=== PATIENT | male | born 1950 | race Caucasian/White ===

== ENCOUNTER 2019-06-03 23:59 | Emergency (ER) | payer MEDICAID ==
[~2019-06-03] VITALS: Ht 180.3 cm; Wt 80.0 kg
[~2019-06-03 23:59] MED LIST: ALPR1TAB2 PO; CLIN150C8 PO; ESCI20TA PO; FLUT16SP26 BOTHNARES; INSU100V9 SQ; LISI-600 PO; LORA10TA7 PO; METF-438 PO; MSC15T PO; ONDA4TAB6 PO; OXYC-150 PO; PANT-47 PO; TIZA4CAP PO; TRAZ-219 PO
[2019-06-04 00:39] LABS: BASOPHILS # (AUTO) 0.1 X10'3 (0-0.2); BASOPHILS % (AUTO) 0.8 % (0-1); EOSINOPHILS # (AUTO) 0.1 X10'3 (0-0.9); EOSINOPHILS % (AUTO) 1.2 % (0-6); HEMATOCRIT 47.8 % (42.0-52.0); HEMOGLOBIN 16.5 g/dl (14.0-17.9); LYMPHOCYTES # (AUTO) 1.7 X10'3 (1.1-4.8); LYMPHOCYTES % (AUTO) 13.9 % (21-51); MEAN CORPUSCULAR HGB CONC 34.6 g/dL (33.0-36.5); MEAN CORPUSCULAR VOLUME 86.9 FL (78-98); MONOCYTES # (AUTO) 0.7 X10'3 (0-0.9); MONOCYTES % (AUTO) 5.7 % (2-12); NEUTROPHILS # (AUTO) 9.6 X10'3 (1.8-7.7); NEUTROPHILS % (AUTO) 78.4 % (42-75); PLATELET COUNT 261 X10'3 (140-440); RED CELL DISTRIBUTION WIDTH 13.1 % (11.5-14.5); WHITE BLOOD COUNT 12.3 X10'3 (4.5-11.0)
[2019-06-04 00:57] LABS: ALANINE AMINOTRANSFERASE 35 U/L (12-78); ALBUMIN 3.3 G/DL (3.4-5.0); ALKALINE PHOSPHATASE 121 IU/L (46-116); ASPARTATE AMINO TRANSFERASE 28 U/L (10-37); BILIRUBIN,TOTAL 0.5 MG/DL (0.1-1.0); BLOOD UREA NITROGEN 20 MG/DL (7-18); BUN/CREATININE RATIO 18.7 (5.4-32.0); CALCIUM 9.1 MG/DL (8.5-10.1); CREATININE 1.07 MG/DL (0.60-1.10); SODIUM 135 MMOL/L (135-145); TOTAL PROTEIN 6.6 G/DL (6.4-8.2); eGFR 69 ML/MIN
[2019-06-04] MEDS ORDERED: normal saline 1000ML IV soln IVB ONE (01:10)
[2019-06-04 01:31] LABS: ANION GAP 12 (8-16); CHLORIDE 98 MMOL/L (99-107); GLUCOSE 256 MG/DL (70-104)
[2019-06-04 01:38] LABS: POTASSIUM 4.1 MMOL/L (3.5-5.1)
[2019-06-04 01:48] LABS: MAGNESIUM 1.7 MG/DL (1.5-2.4); PHOSPHORUS 3.3 MG/DL (2.3-4.5)
[2019-06-04 02:55] LABS: CLARITY,URINE CLEAR (Clear); COLOR,URINE YELLOW (Yellow); GLUCOSE, URINE >=1000 mg/dl (Neg); KETONES,URINE TRACE mg/dl (Neg); LEUKOCYTE ESTERASE ,URINE TRACE (Neg); NITRITES, URINE NEGATIVE (Neg); OCCULT BLOOD,URINE TRACE-INTACT (Neg); PH,URINE 5.5 (4.8-8.0); PROTEIN,URINE NEGATIVE (Neg); UROBILINOGEN,URINE 0.2 E.U/dL (0.2-1.0)
[2019-06-04 03:05] LABS: UA COLLECTION TYPE NON-SPECIFIED
[2019-06-04 03:06] LABS: BACTERIA,URINE NONE SEEN /HPF (Neg); RBC,URINE 0-2 /HPF (0-2); SQUAMOUS EPITHELIAL CELL,UR FEW /LPF (FEW); WBC,URINE 0-4 /HPF (0-4)
[2019-06-04] MEDS ORDERED: INSU100V11 SQ (04:16)
[2019-06-04] MEDS ORDERED: LANTUS SQ (04:16)
[2019-06-04 04:50] VITALS: BP 139/80
--- NOTE | 2019-06-04 04:54 | NUR ---
Contacted patient's Anastacia at [phone]. Left message, stating that patient is ready to be discharged
--- NOTE | 2019-06-04 05:24 | NUR ---
Unable to contact patient's , cleared taxi with charge nurse. Patient sent to [id number] [facility]
[2019-06-05] MEDS ORDERED: INSU100V30 SQ (17:32)
[2019-06-05] MEDS ORDERED: INSU100V12 SQ (17:32)
== END 2019-06-04 05:29 | disposition home or self-care (01) ==
LOC: ER 06-04 00:01
DX: R25.2 Cramp and spasm (principal); E11.65 Type 2 diabetes mellitus with hyperglycemia; G43.909 Migraine, unspecified, not intractable, without status migrainosus; I10 Essential (primary) hypertension; M19.90 Unspecified osteoarthritis, unspecified site; G89.29 Other chronic pain; E11.42 Type 2 diabetes mellitus with diabetic polyneuropathy; Z86.73 Personal history of transient ischemic attack (TIA), and cerebral infarction without residual deficits; Z56.0 Unemployment, unspecified; Z79.899 Other long term (current) drug therapy; Z79.4 Long term (current) use of insulin
CPT/HCPCS: 36415; 80053; 81001; 83735; 84100; 85025; 87088; 99283; J7030

== ENCOUNTER 2019-06-05 15:23 | Emergency (ER) | payer MEDICARE, MEDICAID ==
[~2019-06-05] VITALS: Ht 182.9 cm; Wt 76.0 kg
[~2019-06-05 15:23] MED LIST changes: +INSU100V11 SQ; +LANTUS SQ
[2019-06-05] MEDS ORDERED: normal saline 1000ML IV soln IVB ONE (15:55)
[2019-06-05] MEDS ORDERED: insulin regular, human 10 units/0.1 ml syringe IV ONE (15:55)
[2019-06-05 16:34] LABS: BASOPHILS # (AUTO) 0.1 X10'3 (0-0.2); EOSINOPHILS # (AUTO) 0.2 X10'3 (0-0.9); EOSINOPHILS % (AUTO) 2.1 % (0-6); HEMOGLOBIN 17.1 g/dl (14.0-17.9); LYMPHOCYTES # (AUTO) 1.8 X10'3 (1.1-4.8); LYMPHOCYTES % (AUTO) 18.2 % (21-51); MEAN CORPUSCULAR HEMOGLOBIN 30.3 PG (27.0-31.0); MEAN CORPUSCULAR HGB CONC 34.1 g/dL (33.0-36.5); MEAN PLATELET VOLUME 8.8 FL (7.4-10.4); MONOCYTES # (AUTO) 0.6 X10'3 (0-0.9); MONOCYTES % (AUTO) 5.5 % (2-12); NEUTROPHILS # (AUTO) 7.3 X10'3 (1.8-7.7); NEUTROPHILS % (AUTO) 73.2 % (42-75); PLATELET COUNT 268 X10'3 (140-440); RED BLOOD COUNT 5.62 X10'6 (4.70-6.10); RED CELL DISTRIBUTION WIDTH 13.3 % (11.5-14.5)
[2019-06-05 16:44] LABS: ALANINE AMINOTRANSFERASE 30 U/L (12-78); ALBUMIN/GLOBULIN RATIO 0.8 (1.1-1.5); ALKALINE PHOSPHATASE 111 IU/L (46-116); ANION GAP 10 (8-16); ASPARTATE AMINO TRANSFERASE 19 U/L (10-37); BILIRUBIN,TOTAL 0.5 MG/DL (0.1-1.0); BLOOD UREA NITROGEN 12 MG/DL (7-18); BUN/CREATININE RATIO 12.1 (5.4-32.0); CALCIUM 7.9 MG/DL (8.5-10.1); CHLORIDE 101 MMOL/L (99-107); CREATININE 0.99 MG/DL (0.60-1.10); POTASSIUM 4.1 MMOL/L (3.5-5.1); SODIUM 134 MMOL/L (135-145); TOTAL CARBON DIOXIDE 23.3 MMOL/L (24-32); TOTAL PROTEIN 6.6 G/DL (6.4-8.2); eGFR 76 ML/MIN
[2019-06-05 16:50] LABS: GLUCOSE 539 MG/DL (70-104)
[2019-06-05 17:31] VITALS: BP 130/83
[2019-06-05] MEDS ORDERED: INSU100V12 SQ (17:32)
[2019-06-05] MEDS ORDERED: INSU100V30 SQ (17:32)
== END 2019-06-05 17:34 | disposition home or self-care (01) ==
LOC: ER 15:23
DX: E11.65 Type 2 diabetes mellitus with hyperglycemia (principal); M54.12 Radiculopathy, cervical region; M62.830 Muscle spasm of back; G43.909 Migraine, unspecified, not intractable, without status migrainosus; I10 Essential (primary) hypertension; M19.90 Unspecified osteoarthritis, unspecified site; G89.29 Other chronic pain; E11.42 Type 2 diabetes mellitus with diabetic polyneuropathy; Z56.0 Unemployment, unspecified; Z86.73 Personal history of transient ischemic attack (TIA), and cerebral infarction without residual deficits; Z79.899 Other long term (current) drug therapy; Z79.4 Long term (current) use of insulin
CPT/HCPCS: 80053; 82948; 85025; 96374; 99284; J1815; J7030

== ENCOUNTER 2019-06-10 20:24 | Emergency (ER) | payer MEDICARE, MEDICAID ==
[~2019-06-10] VITALS: Ht 180.3 cm; Wt 80.0 kg
[~2019-06-10 20:24] MED LIST changes: +INSU100V12 SQ; +INSU100V30 SQ
[2019-06-10] MEDS ORDERED: normal saline 1000ML IV soln IVB ONE (20:50)
[2019-06-10 21:28] LABS: ALANINE AMINOTRANSFERASE 32 U/L (12-78); ALBUMIN 3.2 G/DL (3.4-5.0); ALBUMIN/GLOBULIN RATIO 0.8 (1.1-1.5); ALKALINE PHOSPHATASE 125 IU/L (46-116); ANION GAP 8 (8-16); ASPARTATE AMINO TRANSFERASE 17 U/L (10-37); BILIRUBIN,TOTAL 0.5 MG/DL (0.1-1.0); BLOOD UREA NITROGEN 12 MG/DL (7-18); BUN/CREATININE RATIO 10.7 (5.4-32.0); CALCIUM 8.9 MG/DL (8.5-10.1); CHLORIDE 98 MMOL/L (99-107); CREATININE 1.12 MG/DL (0.60-1.10); MAGNESIUM 1.8 MG/DL (1.5-2.4); POTASSIUM 4.3 MMOL/L (3.5-5.1); SODIUM 134 MMOL/L (135-145); TOTAL CARBON DIOXIDE 28.2 MMOL/L (24-32); eGFR 66 ML/MIN
[2019-06-10 21:29] LABS: BASOPHILS # (AUTO) 0.1 X10'3 (0-0.2); BASOPHILS % (AUTO) 0.8 % (0-1); EOSINOPHILS # (AUTO) 0.3 X10'3 (0-0.9); EOSINOPHILS % (AUTO) 2.4 % (0-6); HEMATOCRIT 49.6 % (42.0-52.0); HEMOGLOBIN 16.9 g/dl (14.0-17.9); LYMPHOCYTES # (AUTO) 2.3 X10'3 (1.1-4.8); LYMPHOCYTES % (AUTO) 20.5 % (21-51); MEAN CORPUSCULAR VOLUME 88.2 FL (78-98); MEAN PLATELET VOLUME 8.5 FL (7.4-10.4); MONOCYTES # (AUTO) 0.8 X10'3 (0-0.9); MONOCYTES % (AUTO) 7.5 % (2-12); NEUTROPHILS # (AUTO) 7.7 X10'3 (1.8-7.7); NEUTROPHILS % (AUTO) 68.8 % (42-75); PLATELET COUNT 259 X10'3 (140-440); RED BLOOD COUNT 5.63 X10'6 (4.70-6.10); WHITE BLOOD COUNT 11.1 X10'3 (4.5-11.0)
[2019-06-10 21:34] LABS: GLUCOSE 466 MG/DL (70-104)
--- NOTE | 2019-06-10 21:56 | NUR ---
PATIENT'S WHO IS AT BEDSIDE STATED THAT THE PATIENT HAS BEEN GIVING HIMSELF 10 UNITS BID HUMILIN R. PRESCRIPTION IS WRITTEN FOR 19U BID. PATIENT HAS NEW CAREGIVER WHO IS GOING TO BEGIN ASSISTING IN CARE OF PATIENT AT HOME.
[2019-06-10 23:21] VITALS: BP 144/85
[2019-06-10 23:33] LABS: CLARITY,URINE CLEAR (Clear); COLOR,URINE YELLOW (Yellow); GLUCOSE, URINE >=1000 mg/dl (Neg); KETONES,URINE NEGATIVE (Neg); LEUKOCYTE ESTERASE ,URINE NEGATIVE (Neg); NITRITES, URINE NEGATIVE (Neg); OCCULT BLOOD,URINE NEGATIVE (Neg); PROTEIN,URINE TRACE mg/dl (Neg); UROBILINOGEN,URINE 0.2 E.U/dL (0.2-1.0)
[2019-06-10 23:34] LABS: UA COLLECTION TYPE CLN CATCH MIDSTREAM
[2019-06-11 00:33] LABS: BACTERIA,URINE FEW /HPF (Neg); MUCUS STRANDS FEW /LPF (Neg); RBC,URINE NONE SEEN /HPF (0-2); SQUAMOUS EPITHELIAL CELL,UR MODERATE /LPF (FEW); WBC,URINE 0-4 /HPF (0-4)
== END 2019-06-10 23:29 | disposition home or self-care (01) ==
LOC: ER 20:25
DX: E11.65 Type 2 diabetes mellitus with hyperglycemia (principal); I10 Essential (primary) hypertension; E11.42 Type 2 diabetes mellitus with diabetic polyneuropathy; M19.90 Unspecified osteoarthritis, unspecified site; G89.29 Other chronic pain; G43.909 Migraine, unspecified, not intractable, without status migrainosus; Z91.14 Patient's other noncompliance with medication regimen; Z79.899 Other long term (current) drug therapy; Z79.2 Long term (current) use of antibiotics; Z79.4 Long term (current) use of insulin; Z56.0 Unemployment, unspecified; Z86.73 Personal history of transient ischemic attack (TIA), and cerebral infarction without residual deficits; Z86.69 Personal history of other diseases of the nervous system and sense organs
CPT/HCPCS: 36415; 70450; 71045; 80053; 81001; 82948; 83605; 83735; 84145; 85025; 87040; 93005; 96360; 99284; J7030

== ENCOUNTER 2019-06-17 14:59 | Inpatient (IN) | payer MEDICARE, MEDICAID ==
[~2019-06-17] VITALS: Ht 170.2 cm; Wt 78.6 kg
[~2019-06-17 14:59] MED LIST changes: +LIDOcaine 1% W/epiNEPHrine 1:100,000 20ml vial ONE; +etomidate 2mg/ml inj. ONE; +rocuronium 10mg/ml inj IV ONE; +sod chloride 0.9% 10ml flush syringe IV ONE
[2019-06-17] MEDS ORDERED: fentaNYL/PF 50MCG/1 ML 2ML syringe ONE (15:07)
[2019-06-17] MEDS ORDERED: midazolam 2 mg/2 ml injection ONE (15:07)
[2019-06-17] MEDS ORDERED: normal saline 1000ML IV soln IV ONE (15:10)
--- NOTE | 2019-06-17 15:23 | NUR ---
rate 16,fi02 40 peep 5
[2019-06-17] MEDS ORDERED: pantoprazole 40 MG vial IV ONE (15:25)
[2019-06-17 15:30] LABS: ABG BASE EXCESS -12.4 mmol/L (-2.0-3.0); ABG HCO3 12.9 mmol/L (22.0-26.0); ABG OXYGEN SATURATION 98.9 % (95-98); ABG PCO2 (T) 29.1 mmHg (35.0-45.0); ABG PH (T) 7.266 (7.350-7.450); ABG PO2 (T) 187.1 mmHg (83-108); ALLEN'S TEST Positive; FCOHb 1.3 % (0.5-1.5); FLOW 35 L/min; FMetHb 0.4 % (0.3-1.12); FO2Hb 97.2 % (94-100); MINUTE VOLUME 9 L/min; PEEP 5 cm H2O; RESPIRATORY RATE 16 b/min; RESPIRATORY RATE (OBSERVED) 22 b/min; TIDAL VOLUME 400 mL; TOTAL HEMOGLOBIN 16.1 G/dl (14.0-17.9)
[2019-06-17 15:33] LABS: BASOPHILS # (AUTO) 0.1 X10'3 (0-0.2); BASOPHILS % (AUTO) 0.9 % (0-1); EOSINOPHILS # (AUTO) 0.4 X10'3 (0-0.9); EOSINOPHILS % (AUTO) 2.7 % (0-6); HEMATOCRIT 50.7 % (42.0-52.0); HEMOGLOBIN 16.8 g/dl (14.0-17.9); LYMPHOCYTES # (AUTO) 3.3 X10'3 (1.1-4.8); MEAN CORPUSCULAR HEMOGLOBIN 29.9 PG (27.0-31.0); MEAN CORPUSCULAR HGB CONC 33.1 g/dL (33.0-36.5); MEAN CORPUSCULAR VOLUME 90.4 FL (78-98); MEAN PLATELET VOLUME 8.9 FL (7.4-10.4); MONOCYTES # (AUTO) 0.8 X10'3 (0-0.9); MONOCYTES % (AUTO) 6.1 % (2-12); NEUTROPHILS # (AUTO) 8.6 X10'3 (1.8-7.7); NEUTROPHILS % (AUTO) 65.3 % (42-75); PLATELET COUNT 297 X10'3 (140-440); RED BLOOD COUNT 5.61 X10'6 (4.70-6.10); RED CELL DISTRIBUTION WIDTH 13.6 % (11.5-14.5); WHITE BLOOD COUNT 13.2 X10'3 (4.5-11.0)
[2019-06-17] MEDS: midazolam 100mg in NS 100ml 100 ML IV PRN ×3 (15:39→16:29)
[2019-06-17 15:46] LABS: PARTIAL THROMBOPLASTIN TIME 26 SECONDS (22-32)
[2019-06-17] MEDS: fentaNYL/PF 50MCG/1 ML 2ML syringe IV PRN ×3 (15:50→18:14)
--- NOTE | 2019-06-17 15:51 | NUR ---
Dr. Savage at bedside to do IJ.
--- NOTE | 2019-06-17 15:53 | NUR ---
versed increased to 2mg/hour.
[2019-06-17 16:00] LABS: ALANINE AMINOTRANSFERASE 33 U/L (12-78); ALBUMIN 3.4 G/DL (3.4-5.0); ALBUMIN/GLOBULIN RATIO 0.9 (1.1-1.5); ALKALINE PHOSPHATASE 115 IU/L (46-116); ANION GAP 18 (8-16); ASPARTATE AMINO TRANSFERASE 33 U/L (10-37); BILIRUBIN,TOTAL 0.6 MG/DL (0.1-1.0); BLOOD UREA NITROGEN 14 MG/DL (7-18); BUN/CREATININE RATIO 11.5 (5.4-32.0); CALCIUM 8.8 MG/DL (8.5-10.1); CHLORIDE 100 MMOL/L (99-107); CREATININE 1.22 MG/DL (0.60-1.10); GLUCOSE 395 MG/DL (70-104); SODIUM 136 MMOL/L (135-145); TOTAL CARBON DIOXIDE 17.8 MMOL/L (24-32); TOTAL PROTEIN 7.3 G/DL (6.4-8.2); eGFR 59 ML/MIN
[2019-06-17] MEDS: pantoprazole 40MG/NS 100ML BAG 100 ML IV SCH ×4 (16:00→21:00)
[2019-06-17 16:01] LABS: POTASSIUM 3.7 MMOL/L (3.5-5.1)
--- NOTE | 2019-06-17 16:18 | NUR ---
patient moving while Dr. Savage doing IJ,given RN order to admin 2mg of fentanyl and increased versed drip increased to 4mg/hour.
[2019-06-17 16:39] LABS: CLARITY,URINE CLEAR (Clear); COLOR,URINE YELLOW (Yellow); GLUCOSE, URINE >=1000 mg/dl (Neg); KETONES,URINE NEGATIVE (Neg); LEUKOCYTE ESTERASE ,URINE NEGATIVE (Neg); NITRITES, URINE NEGATIVE (Neg); OCCULT BLOOD,URINE TRACE-INTACT (Neg); PROTEIN,URINE 100 mg/dl (Neg); UROBILINOGEN,URINE 0.2 E.U/dL (0.2-1.0)
[2019-06-17 16:51] LABS: UA COLLECTION TYPE FOLEY CATH
[2019-06-17 16:52] LABS: BACTERIA,URINE NONE SEEN /HPF (Neg); MUCUS STRANDS NONE SEEN /LPF (Neg); RBC,URINE 0-2 /HPF (0-2); SQUAMOUS EPITHELIAL CELL,UR FEW /LPF (FEW); WBC,URINE 0-4 /HPF (0-4)
--- NOTE | 2019-06-17 16:53 | NUR ---
family at bedside.
[2019-06-17] MEDS ORDERED: normal saline 1000ml 1,000 ML IV ONE (17:00)
--- NOTE | 2019-06-17 17:56 | NUR ---
patient to CT.
--- NOTE | 2019-06-17 18:51 | NUR ---
DR DRAKE MADE AWARE OF PT TRENDING DOWN BP, CURRENTLY 110/69 (83). WILL CONTINTUE TO MONITOR.
[2019-06-17 18:56] LABS: ALANINE AMINOTRANSFERASE 28 U/L (12-78); ALBUMIN 2.9 G/DL (3.4-5.0); ALBUMIN/GLOBULIN RATIO 0.9 (1.1-1.5); ALKALINE PHOSPHATASE 91 IU/L (46-116); ANION GAP 9 (8-16); ASPARTATE AMINO TRANSFERASE 27 U/L (10-37); BILIRUBIN,TOTAL 1.2 MG/DL (0.1-1.0); BLOOD UREA NITROGEN 12 MG/DL (7-18); BUN/CREATININE RATIO 13.3 (5.4-32.0); CALCIUM 8.1 MG/DL (8.5-10.1); CHLORIDE 105 MMOL/L (99-107); GLUCOSE 317 MG/DL (70-104); POTASSIUM 3.9 MMOL/L (3.5-5.1); SODIUM 137 MMOL/L (135-145); TOTAL CARBON DIOXIDE 22.9 MMOL/L (24-32); eGFR 84 ML/MIN
[2019-06-17] MEDS ORDERED: acetaminophen 325mg tablet PO PRN ×2 (20:00)
[2019-06-17] MEDS ORDERED: acetaminophen 650mg rectal suppository RC PRN (20:00)
[2019-06-17] MEDS ORDERED: sodium phosphate inj. 15 MMOL in dextrose 5%-water 150 ML IV PRN (20:00)
[2019-06-17] MEDS ORDERED: dextrose 50%-water 50ml dispensing syringe IV PRN ×2 (20:00)
[2019-06-17] MEDS ORDERED: magnesium 2GM in 50ml NS 50 ML IV PRN (20:00)
[2019-06-17] MEDS ORDERED: magnesium 4gm in 100ml NS 100 ML IV PRN (20:00)
[2019-06-17] MEDS ORDERED: sodium phosphate inj. 30 MMOL in dextrose 5%-water 250 ML IV PRN (20:00)
[2019-06-17] MEDS ORDERED: MESSAGE TO PHARMACY PO ONE (20:00)
[2019-06-17] MEDS ORDERED: glucagon, human recombinant 1mg kit SUBCUT PRN (20:00)
[2019-06-17] MEDS ORDERED: magnesium hydroxide 30ml (MOM) UD suspension PO PRN (20:00)
[2019-06-17] MEDS ORDERED: ipratropium/albuterol 3ml nebule NEB PRN (20:00)
[2019-06-17] MEDS ORDERED: ondansetron/PF 4mg/2ml inj IV PRN (20:00)
[2019-06-17] MEDS ORDERED: dextrose ORAL solution 15 GM/59 ML bottle PO PRN ×2 (20:00)
[2019-06-17 20:29] LABS: MAGNESIUM 1.4 MG/DL (1.5-2.4); PHOSPHORUS 1.8 MG/DL (2.3-4.5)
[2019-06-17 21:00] VITALS: BP 142/84
--- NOTE | 2019-06-17 21:00 | NUR ---
Patient in room ICU 2041 from ER on [facility]. I have received report from ELECTRONICS SCALE TESTER and had the opportunity to ask questions and assume patient care.
[2019-06-17] MEDS: normal saline 1000ml 1,000 ML IV SCH (21:42)
[2019-06-17 22:00] VITALS: BP 120/72
[2019-06-17] MEDS: docusate sodium 100mg/10ml UD cup PO SCH (22:02)
[2019-06-17] MEDS: insulin glargine (Lantus) pen - multi-dose SQ SCH (22:06)
[2019-06-17] MEDS: insulin Lispro (HumaLOG) vial - multi-dose SQ SCH (22:07)
[2019-06-17 23:00] VITALS: BP 105/62
[2019-06-18] VITALS (26 sets, daily range): BP systolic 69–122; BP diastolic 41–66
[2019-06-18] MEDS: pantoprazole 40MG/NS 100ML BAG 100 ML IV SCH ×5 (01:51→21:00)
[2019-06-18] MEDS: insulin Lispro (HumaLOG) vial - multi-dose SQ SCH ×2 (01:57→20:43)
[2019-06-18] MEDS: midazolam 100mg in NS 100ml 100 ML IV PRN (03:17)
[2019-06-18 03:26] LABS: ABG BASE EXCESS -2.2 mmol/L (-2.0-3.0); ABG OXYGEN SATURATION 97.8 % (95-98); ABG PCO2 (T) 32.2 mmHg (35.0-45.0); ABG PH (T) 7.433 (7.350-7.450); ABG PO2 (T) 104.6 mmHg (83-108); ALLEN'S TEST Positive; FCOHb 0.1 % (0.5-1.5); FMetHb 0.1 % (0.3-1.12); FO2Hb 97.6 % (94-100); MINUTE VOLUME 9 L/min; PEEP 5 cm H2O; RESPIRATORY RATE 16 b/min; RESPIRATORY RATE (OBSERVED) 21 b/min; TIDAL VOLUME 400 mL; TOTAL HEMOGLOBIN 15.5 G/dl (14.0-17.9)
[2019-06-18 03:30] LABS: BASOPHILS # (AUTO) 0.1 X10'3 (0-0.2); BASOPHILS % (AUTO) 0.7 % (0-1); HEMATOCRIT 42.6 % (42.0-52.0); LYMPHOCYTES # (AUTO) 2.4 X10'3 (1.1-4.8); MONOCYTES # (AUTO) 0.7 X10'3 (0-0.9); RED BLOOD COUNT 4.82 X10'6 (4.70-6.10)
[2019-06-18 03:31] LABS: EOSINOPHILS # (AUTO) 0.3 X10'3 (0-0.9); EOSINOPHILS % (AUTO) 2.2 % (0-6); HEMOGLOBIN 14.4 g/dl (14.0-17.9); LYMPHOCYTES % (AUTO) 18.1 % (21-51); MEAN CORPUSCULAR HEMOGLOBIN 29.8 PG (27.0-31.0); MEAN CORPUSCULAR HGB CONC 33.8 g/dL (33.0-36.5); MEAN CORPUSCULAR VOLUME 88.4 FL (78-98); MEAN PLATELET VOLUME 8.9 FL (7.4-10.4); MONOCYTES % (AUTO) 5.6 % (2-12); NEUTROPHILS # (AUTO) 9.6 X10'3 (1.8-7.7); NEUTROPHILS % (AUTO) 73.4 % (42-75); PLATELET COUNT 203 X10'3 (140-440); RED CELL DISTRIBUTION WIDTH 13.5 % (11.5-14.5); WHITE BLOOD COUNT 13.1 X10'3 (4.5-11.0)
[2019-06-18 04:02] LABS: ALANINE AMINOTRANSFERASE 26 U/L (12-78); ALBUMIN 2.7 G/DL (3.4-5.0); ALKALINE PHOSPHATASE 78 IU/L (46-116); ANION GAP 9 (8-16); ASPARTATE AMINO TRANSFERASE 17 U/L (10-37); BLOOD UREA NITROGEN 10 MG/DL (7-18); BUN/CREATININE RATIO 12.3 (5.4-32.0); CALCIUM 8.2 MG/DL (8.5-10.1); CHLORIDE 108 MMOL/L (99-107); CREATININE 0.81 MG/DL (0.60-1.10); GLUCOSE 183 MG/DL (70-104); POTASSIUM 3.3 MMOL/L (3.5-5.1); SODIUM 142 MMOL/L (135-145); TOTAL CARBON DIOXIDE 24.9 MMOL/L (24-32); TOTAL PROTEIN 5.5 G/DL (6.4-8.2); eGFR > 90 ML/MIN
[2019-06-18 04:04] LABS: MAGNESIUM 2.2 MG/DL (1.5-2.4); PHOSPHORUS 2.3 MG/DL (2.3-4.5)
[2019-06-18 04:28] LABS: PARTIAL THROMBOPLASTIN TIME 24 SECONDS (22-32)
[2019-06-18] MEDS: potassium Cl 20mEq/100mL bag 100 ML IV PRN ×2 (04:37→05:38)
[2019-06-18 04:42] LABS: URINE AMPHETAMINE SCREEN POSITIVE (Neg); URINE BARBITUATE SCREEN NEGATIVE (Neg); URINE BENZODIAZEPINES SCREEN NEGATIVE (Neg); URINE CANNABINOID SCREEN NEGATIVE (Neg); URINE COCAINE SCREEN NEGATIVE (Neg); URINE METHADONE SCREEN NEGATIVE (Neg); URINE OPIATE SCREEN NEGATIVE (Neg); URINE PHENCYCLIDINE SCREEN NEGATIVE (Neg)
--- NOTE | 2019-06-18 06:23 | NUR ---
Problems reprioritized. Patient report given, questions answered & plan of care reviewed with Francisco MCDOWELL.
--- NOTE | 2019-06-18 06:30 | NUR ---
Patient in room ICU 2041. I have received report from Sally MCDOWELL and had the opportunity to ask questions and assume patient care.
[2019-06-18] MEDS: FENTANYL-0.9 % NACL/PF 100 ML IV PRN ×2 (07:11→23:10)
--- NOTE | 2019-06-18 07:25 | NUR ---
Pt spontaneously woke up extremely agitated. He is trying to sit up in bed and is attempting to pull his ET tube out, there is also risk that he will move to aggressively and accidentally pull his Central Line. He would not listen to directions to calm down and lie back down in bed, although he was opening his eyes on command and looking in my direction. Versed was titrated up and the patient was given a bolus two times. The patient was not becoming sedated and was still actively trying to pull his tube out. The Versed was titrated up again, and he was given another bolus. Fentanyl was started and he was given a small bolus of this as well. Shortly after, the patient became calm and is now sleeping without agitation.
[2019-06-18] MEDS: docusate sodium 100mg/10ml UD cup PO SCH ×2 (07:32→20:21)
[2019-06-18] MEDS ORDERED: LIDOcaine Viscous 15ml cup ONE (07:32)
[2019-06-18] MEDS ORDERED: MIDAZolam 5mg/5ml vial ONE (07:32)
[2019-06-18] MEDS ORDERED: fentaNYL/PF 50MCG/1 ML 2ML syringe ONE (07:32)
--- NOTE | 2019-06-18 07:41 | NUR ---
GI Team arrived in room. Plans to start at 0800.
--- NOTE | 2019-06-18 07:57 | NUR ---
Pt was given a bolus of Versed and Fentanyl during the EGD per Dr. Herring's request, as patient was waking up.
--- NOTE | 2019-06-18 08:07 | NUR ---
EGD has been completed. GI team is clearing their gear out of the room.
--- NOTE | 2019-06-18 08:43 | NUR ---
Pt has been given a 250ml bolus for decreased BP.
[2019-06-18] MEDS ORDERED: NORepinephrine 8mg/ 250ml NS 250 ML IV ONE (09:14)
[2019-06-18] MEDS: NORepinephrine 8mg/ 250ml NS 250 ML IV SCH ×2 (09:15→09:26)
--- NOTE | 2019-06-18 10:18 | NUR ---
DM consult: Pt with hx T2DM with A1c 10.5 admit with GIB and seizures requiring emergent intubation per H&P. DM education not appropriate at this time. TF recommendations below for if prolonged intubation and to receive nutrition support, calculated to meet 100% of patient's estimated nutrient needs. Will continue to follow. Recommendations: 1) If to receive EN, continuous Vital AF with goal rate of 65 mL/hr 2) If above, prealbumin q Thursday/; daily weights 3) Once extubated diet advancement to heart healthy CHO controlled as medically indicated 4) DM education prior to discharge once stable Addendum: 06/18/19 at [address] Amended: Links added.
[2019-06-18 10:55] LABS: BASOPHILS # (AUTO) 0.1 X10'3 (0-0.2); BASOPHILS % (AUTO) 0.7 % (0-1); EOSINOPHILS # (AUTO) 0.2 X10'3 (0-0.9); EOSINOPHILS % (AUTO) 1.2 % (0-6); HEMATOCRIT 43.6 % (42.0-52.0); LYMPHOCYTES # (AUTO) 2.4 X10'3 (1.1-4.8); LYMPHOCYTES % (AUTO) 13.4 % (21-51); MEAN CORPUSCULAR HEMOGLOBIN 29.9 PG (27.0-31.0); MEAN CORPUSCULAR HGB CONC 34.3 g/dL (33.0-36.5); MEAN CORPUSCULAR VOLUME 87.2 FL (78-98); MEAN PLATELET VOLUME 8.4 FL (7.4-10.4); MONOCYTES # (AUTO) 1.1 X10'3 (0-0.9); MONOCYTES % (AUTO) 6.2 % (2-12); NEUTROPHILS % (AUTO) 78.5 % (42-75); PLATELET COUNT 257 X10'3 (140-440); RED CELL DISTRIBUTION WIDTH 13.1 % (11.5-14.5); WHITE BLOOD COUNT 17.8 X10'3 (4.5-11.0)
[2019-06-18] MEDS: normal saline 1000ml 1,000 ML IV SCH (11:48)
[2019-06-18 14:59] LABS: HEMATOCRIT 43.7 % (42.0-52.0); HEMOGLOBIN 14.9 g/dl (14.0-17.9); MEAN CORPUSCULAR HGB CONC 34.1 g/dL (33.0-36.5); MEAN PLATELET VOLUME 8.4 FL (7.4-10.4); PLATELET COUNT 231 X10'3 (140-440); RED BLOOD COUNT 4.97 X10'6 (4.70-6.10); RED CELL DISTRIBUTION WIDTH 13.3 % (11.5-14.5); WHITE BLOOD COUNT 16.5 X10'3 (4.5-11.0)
--- NOTE | 2019-06-18 18:30 | NUR ---
Patient in room ICU 2041. I have received report from Francisco MCDOWELL and had the opportunity to ask questions and assume patient care. Patient intubated and currently sedated, breathing at 24 breath/min and saturating at 100% on 30% FIO2 on A/C VC mode. BP 103/62 on 2mcg/hr levophed. Will continue to monitor patient closely.
[2019-06-18] MEDS: mineral oil/petrolatum ophthal oint EACHEYE SCH (20:28)
[2019-06-18] MEDS: CefTRIAXone 2gm/D5W 50ml 50 ML IV SCH (20:28)
[2019-06-18] MEDS: insulin glargine (Lantus) pen - multi-dose SQ SCH (20:42)
[2019-06-18] MEDS: valproate sod inj 1,000 MG in normal saline 100ml IV soln 90 ML IV SCH (21:40)
[2019-06-18] MEDS: azithromycin/NS 500mg/250ml 250 ML IV SCH (23:05)
[2019-06-19] VITALS (24 sets, daily range): BP systolic 83–150; BP diastolic 49–84
[2019-06-19] MEDS: pantoprazole 40MG/NS 100ML BAG 100 ML IV SCH ×5 (01:40→20:28)
[2019-06-19] MEDS: midazolam 100mg in NS 100ml 100 ML IV PRN (02:03)
[2019-06-19] MEDS: insulin Lispro (HumaLOG) vial - multi-dose SQ SCH (02:38)
[2019-06-19] MEDS: mineral oil/petrolatum ophthal oint EACHEYE SCH ×4 (02:39→19:10)
[2019-06-19 03:07] LABS: BASOPHILS # (AUTO) 0.1 X10'3 (0-0.2); BASOPHILS % (AUTO) 0.7 % (0-1); EOSINOPHILS # (AUTO) 0.3 X10'3 (0-0.9); EOSINOPHILS % (AUTO) 1.8 % (0-6); HEMATOCRIT 41.4 % (42.0-52.0); HEMOGLOBIN 14.1 g/dl (14.0-17.9); LYMPHOCYTES % (AUTO) 18.5 % (21-51); MEAN CORPUSCULAR HEMOGLOBIN 29.9 PG (27.0-31.0); MEAN CORPUSCULAR HGB CONC 33.9 g/dL (33.0-36.5); MEAN CORPUSCULAR VOLUME 88.2 FL (78-98); MEAN PLATELET VOLUME 9.1 FL (7.4-10.4); MONOCYTES # (AUTO) 1.1 X10'3 (0-0.9); MONOCYTES % (AUTO) 6.7 % (2-12); NEUTROPHILS # (AUTO) 11.9 X10'3 (1.8-7.7); NEUTROPHILS % (AUTO) 72.3 % (42-75); PLATELET COUNT 241 X10'3 (140-440); RED CELL DISTRIBUTION WIDTH 13.3 % (11.5-14.5); WHITE BLOOD COUNT 16.4 X10'3 (4.5-11.0)
[2019-06-19 03:11] LABS: ABG BASE EXCESS -2.7 mmol/L (-2.0-3.0); ABG HCO3 20.7 mmol/L (22.0-26.0); ABG OXYGEN SATURATION 97.8 % (95-98); ABG PH (T) 7.407 (7.350-7.450); ABG PO2 (T) 107.3 mmHg (83-108); ALLEN'S TEST Positive; FCOHb 0.4 % (0.5-1.5); FMetHb 0.2 % (0.3-1.12); FO2Hb 97.2 % (94-100); MINUTE VOLUME 7 L/min; PEEP 5 cm H2O; RESPIRATORY RATE 16 b/min; RESPIRATORY RATE (OBSERVED) 16 b/min; TIDAL VOLUME 400 mL; TOTAL HEMOGLOBIN 14.8 G/dl (14.0-17.9)
[2019-06-19 03:19] LABS: PARTIAL THROMBOPLASTIN TIME 28 SECONDS (22-32)
[2019-06-19 03:30] LABS: ALANINE AMINOTRANSFERASE 18 U/L (12-78); ALBUMIN 2.2 G/DL (3.4-5.0); ALBUMIN/GLOBULIN RATIO 0.7 (1.1-1.5); ALKALINE PHOSPHATASE 71 IU/L (46-116); ANION GAP 5 (8-16); ASPARTATE AMINO TRANSFERASE 14 U/L (10-37); BILIRUBIN,TOTAL 0.7 MG/DL (0.1-1.0); BLOOD UREA NITROGEN 9 MG/DL (7-18); BUN/CREATININE RATIO 10.1 (5.4-32.0); CALCIUM 7.5 MG/DL (8.5-10.1); CHLORIDE 110 MMOL/L (99-107); CREATININE 0.89 MG/DL (0.60-1.10); GLUCOSE 120 MG/DL (70-104); MAGNESIUM 1.6 MG/DL (1.5-2.4); PHOSPHORUS 2.5 MG/DL (2.3-4.5); POTASSIUM 3.6 MMOL/L (3.5-5.1); SODIUM 140 MMOL/L (135-145); TOTAL CARBON DIOXIDE 25.4 MMOL/L (24-32); TOTAL PROTEIN 5.2 G/DL (6.4-8.2); eGFR 86 ML/MIN
[2019-06-19] MEDS: normal saline 1000ml 1,000 ML IV SCH ×2 (04:22→18:43)
--- NOTE | 2019-06-19 06:30 | NUR ---
Patient in room ICU 2041. I have received report from JEREMIAS Aguero and had the opportunity to ask questions and assume patient care.
--- NOTE | 2019-06-19 06:31 | NUR ---
Problems reprioritized. Patient report given, questions answered & plan of care reviewed with Boy MCDOWELL.
[2019-06-19] MEDS: CefTRIAXone 2gm/D5W 50ml 50 ML IV SCH (07:41)
[2019-06-19] MEDS: docusate sodium 100mg/10ml UD cup PO SCH ×2 (07:41→20:00)
[2019-06-19] MEDS: azithromycin/NS 500mg/250ml 250 ML IV SCH (08:31)
--- NOTE | 2019-06-19 08:45 | NUR ---
Pt self extubated. Suction provided. Nasal canula placed with 4 L/min O2. Pt respirations even and unlabored. Pt is following commands appropriately. Pt is drowsy, sedation and analgesic gtt discontinued.
[2019-06-19] MEDS: valproate sod inj 1,000 MG in normal saline 100ml IV soln 90 ML IV SCH ×2 (09:57→20:25)
[2019-06-19] MEDS: hydrocortisone sod succ/PF 100mg/2ml inj. IV SCH ×2 (11:17→20:25)
--- NOTE | 2019-06-19 18:12 | NUR ---
Patient in room ICU 2041. I have received report from Boy MCDOWELL and had the opportunity to ask questions and assume patient care. Patient in bed with eyes closed, in no apparent distress. Alert and oriented x3. Patient saturating at 99% on room air, respirations even and unlabored. Will continue to monitor patient closely.
--- NOTE | 2019-06-19 18:12 | NUR ---
Problems reprioritized. Patient report given, questions answered & plan of care reviewed with JEREMIAS Aguero.
[2019-06-19] MEDS: lactobacillus rhamnosus 10,000 MMU CELLS/CAPSULE PO SCH (20:00)
[2019-06-19] MEDS: insulin glargine (Lantus) pen - multi-dose SQ SCH (21:00)
[2019-06-20] VITALS (21 sets, daily range): BP systolic 107–146; BP diastolic 44–79
[2019-06-20] MEDS: pantoprazole 40MG/NS 100ML BAG 100 ML IV SCH ×3 (01:00→06:45)
[2019-06-20] MEDS: normal saline 1000ml 1,000 ML IV SCH ×2 (01:17→07:53)
[2019-06-20 02:21] LABS: BASOPHILS # (AUTO) 0.1 X10'3 (0-0.2); EOSINOPHILS % (AUTO) 0.1 % (0-6); HEMOGLOBIN 14.5 g/dl (14.0-17.9)
[2019-06-20 02:22] LABS: BASOPHILS % (AUTO) 0.5 % (0-1); HEMATOCRIT 42.7 % (42.0-52.0); LYMPHOCYTES # (AUTO) 1.3 X10'3 (1.1-4.8); LYMPHOCYTES % (AUTO) 8.7 % (21-51); MEAN CORPUSCULAR HEMOGLOBIN 29.8 PG (27.0-31.0); MEAN CORPUSCULAR HGB CONC 33.9 g/dL (33.0-36.5); MONOCYTES # (AUTO) 0.5 X10'3 (0-0.9); MONOCYTES % (AUTO) 3.3 % (2-12); NEUTROPHILS # (AUTO) 13.4 X10'3 (1.8-7.7); NEUTROPHILS % (AUTO) 87.4 % (42-75); RED BLOOD COUNT 4.85 X10'6 (4.70-6.10); RED CELL DISTRIBUTION WIDTH 12.9 % (11.5-14.5); WHITE BLOOD COUNT 15.4 X10'3 (4.5-11.0)
[2019-06-20 02:30] LABS: ALANINE AMINOTRANSFERASE 17 U/L (12-78); ALBUMIN 2.1 G/DL (3.4-5.0); ALBUMIN/GLOBULIN RATIO 0.6 (1.1-1.5); ALKALINE PHOSPHATASE 80 IU/L (46-116); ANION GAP 8 (8-16); ASPARTATE AMINO TRANSFERASE 15 U/L (10-37); BILIRUBIN,TOTAL 0.7 MG/DL (0.1-1.0); BLOOD UREA NITROGEN 10 MG/DL (7-18); BUN/CREATININE RATIO 12.3 (5.4-32.0); CALCIUM 7.4 MG/DL (8.5-10.1); CHLORIDE 108 MMOL/L (99-107); CREATININE 0.81 MG/DL (0.60-1.10); GLUCOSE 103 MG/DL (70-104); MAGNESIUM 1.5 MG/DL (1.5-2.4); PHOSPHORUS 2.9 MG/DL (2.3-4.5); POTASSIUM 3.7 MMOL/L (3.5-5.1); SODIUM 139 MMOL/L (135-145); TOTAL CARBON DIOXIDE 23.3 MMOL/L (24-32); TOTAL PROTEIN 5.4 G/DL (6.4-8.2); eGFR > 90 ML/MIN
[2019-06-20 02:44] LABS: PLATELET COUNT 216 X10'3 (140-440)
[2019-06-20 02:47] LABS: PARTIAL THROMBOPLASTIN TIME 29 SECONDS (22-32)
--- NOTE | 2019-06-20 06:18 | NUR ---
Problems reprioritized. Patient report given, questions answered & plan of care reviewed with Boy MCDOWELL.
--- NOTE | 2019-06-20 06:30 | NUR ---
Patient in room ICU 2041. I have received report from JEREMIAS Aguero and had the opportunity to ask questions and assume patient care.
[2019-06-20] MEDS: valproate sod inj 1,000 MG in normal saline 100ml IV soln 90 ML IV SCH (07:44)
[2019-06-20] MEDS: docusate sodium 100mg/10ml UD cup PO SCH ×2 (07:50→19:23)
[2019-06-20] MEDS: lactobacillus rhamnosus 10,000 MMU CELLS/CAPSULE PO SCH ×2 (07:50→19:23)
[2019-06-20] MEDS: hydrocortisone sod succ/PF 100mg/2ml inj. IV SCH ×2 (07:50→19:23)
[2019-06-20] MEDS: CefTRIAXone 2gm/D5W 50ml 50 ML IV SCH (09:13)
[2019-06-20] MEDS: NORepinephrine 8mg/ 250ml NS 250 ML IV SCH (09:15)
[2019-06-20] MEDS: azithromycin/NS 500mg/250ml 250 ML IV SCH (10:00)
[2019-06-20] MEDS ORDERED: INSU100V9 SQ (10:46)
[2019-06-20] MEDS ORDERED: APIX2.5T PO (10:47)
[2019-06-20 10:51] LABS: VALPROATE 77 UG/ML (50-100)
--- NOTE | 2019-06-20 18:19 | NUR ---
Problems reprioritized. Patient report given, questions answered & plan of care reviewed with Aziza MCDOWELL for transfer. Report provided by Boy MCDOWELL
--- NOTE | 2019-06-20 18:21 | NUR ---
Problems reprioritized. Patient report given, questions answered & plan of care reviewed with JEREMIAS Aguero. Report given to Monique MCDOWELL on PCU
[2019-06-20] MEDS: insulin Lispro (HumaLOG) vial - multi-dose SQ SCH (18:38)
--- NOTE | 2019-06-20 18:45 | NUR ---
Patient in room ICU 2041. I have received report from Boy MCDOWELL and had the opportunity to ask questions and assume patient care. Patient given to telegraphic typewriter operator by Boy MCDOWELL, will transfer patient upstairs shortly.
--- NOTE | 2019-06-20 18:59 | NUR ---
Patient transferred to telemetry floor in stable condition via wheelchair accompanied by RN. Vitals WNL at this time, patient alert/oriented x3. All belongings and medications transferred with patient.
--- NOTE | 2019-06-20 19:00 | NUR ---
Patient in room PCU 3013. I have received report from Boy MCDOWELL and had the opportunity to ask questions and assume patient care. Patient is in bed with family at bedside, all personal things in closet, SCDs were placed on legs, tabs alarm placed, and comfortable in bed. Will continue to monitor.
[2019-06-20] MEDS: divalproex sodium 500mg tablet.DR PO SCH (19:39)
[2019-06-20] MEDS: insulin glargine (Lantus) pen - multi-dose SQ SCH (22:26)
[2019-06-21 02:30] VITALS: BP 116/69
[2019-06-21 04:10] LABS: BASOPHILS % (AUTO) 0.4 % (0-1); EOSINOPHILS % (AUTO) 0.1 % (0-6); HEMATOCRIT 42.3 % (42.0-52.0); HEMOGLOBIN 14.7 g/dl (14.0-17.9); LYMPHOCYTES # (AUTO) 1.4 X10'3 (1.1-4.8); LYMPHOCYTES % (AUTO) 13.5 % (21-51); MEAN CORPUSCULAR HEMOGLOBIN 30.4 PG (27.0-31.0); MEAN CORPUSCULAR HGB CONC 34.8 g/dL (33.0-36.5); MEAN CORPUSCULAR VOLUME 87.3 FL (78-98); MEAN PLATELET VOLUME 8.5 FL (7.4-10.4); MONOCYTES # (AUTO) 0.5 X10'3 (0-0.9); MONOCYTES % (AUTO) 4.9 % (2-12); NEUTROPHILS # (AUTO) 8.4 X10'3 (1.8-7.7); NEUTROPHILS % (AUTO) 81.1 % (42-75); PLATELET COUNT 215 X10'3 (140-440); RED BLOOD COUNT 4.84 X10'6 (4.70-6.10); WHITE BLOOD COUNT 10.4 X10'3 (4.5-11.0)
[2019-06-21 04:26] LABS: PARTIAL THROMBOPLASTIN TIME 28 SECONDS (22-32)
[2019-06-21 04:32] LABS: ALANINE AMINOTRANSFERASE 16 U/L (12-78); ALBUMIN 2.2 G/DL (3.4-5.0); ALBUMIN/GLOBULIN RATIO 0.6 (1.1-1.5); ALKALINE PHOSPHATASE 77 IU/L (46-116); ANION GAP 8 (8-16); ASPARTATE AMINO TRANSFERASE 12 U/L (10-37); BILIRUBIN,TOTAL 0.5 MG/DL (0.1-1.0); BLOOD UREA NITROGEN 15 MG/DL (7-18); BUN/CREATININE RATIO 18.3 (5.4-32.0); CALCIUM 7.7 MG/DL (8.5-10.1); CHLORIDE 108 MMOL/L (99-107); CREATININE 0.82 MG/DL (0.60-1.10); GLUCOSE 166 MG/DL (70-104); MAGNESIUM 1.7 MG/DL (1.5-2.4); POTASSIUM 3.6 MMOL/L (3.5-5.1); SODIUM 141 MMOL/L (135-145); TOTAL CARBON DIOXIDE 25.1 MMOL/L (24-32); TOTAL PROTEIN 5.7 G/DL (6.4-8.2); eGFR > 90 ML/MIN
--- NOTE | 2019-06-21 05:06 | NUR ---
END NOC NOTE Patient is able to reposition in bed independently, unable to use call light to notify staff for help. Tabs alarm is on bed to alert staff. Patient able to verbalize the need to use a urinal. Patient overall is able to follow instructions and reoriented. Will continue to monitor.
--- NOTE | 2019-06-21 05:33 | NUR ---
SITTER Patient has been very active in bed and climbing out of bed for the past 20 min, Buzz SIDEROGRAPHER was notified, Sitter order was received. Will continue to monitor.
[2019-06-21 06:00] VITALS: BP 129/70
--- NOTE | 2019-06-21 06:32 | NUR ---
Patient in room PCU 3013. I have received report from Kelly MCDOWELL and had the opportunity to ask questions and assume patient care.
--- NOTE | 2019-06-21 06:32 | NUR ---
Problems reprioritized. Patient report given, questions answered & plan of care reviewed with Ceci MCDOWELL and Aziza MCDOWELL.
[2019-06-21] MEDS ORDERED: pantoprazole 40mg Tablet.DR PO SCH (07:30)
[2019-06-21] MEDS: divalproex sodium 500mg tablet.DR PO SCH (08:00)
[2019-06-21] MEDS: hydrocortisone sod succ/PF 100mg/2ml inj. IV SCH (08:04)
[2019-06-21] MEDS: azithromycin/NS 500mg/250ml 250 ML IV SCH (08:05)
[2019-06-21] MEDS: docusate sodium 100mg/10ml UD cup PO SCH (08:05)
[2019-06-21] MEDS: lactobacillus rhamnosus 10,000 MMU CELLS/CAPSULE PO SCH (08:05)
[2019-06-21] MEDS: CefTRIAXone 2gm/D5W 50ml 50 ML IV SCH (08:05)
[2019-06-21] MEDS: insulin Lispro (HumaLOG) vial - multi-dose SQ SCH ×2 (08:19→14:08)
[2019-06-21] MEDS ORDERED: pneumococcal 23-VAL P-sac vacc 25 mcg/0.5ml vial IMVAC ONE (10:00)
--- NOTE | 2019-06-21 14:33 | NUR ---
reassessment: Pt AOx4 currently PO 100% pureed/carb controlled meals meeting needs. To remain on pureed given no teeth per SP. Pt seen by RD for written/verbal DM ed w/ RD contact information provided. Pt passive during ed looking at t.v. and reports usual GLU at home 120-125 which is likely inaccurate given A1C. Pt could not remember DM meds during RD visit. LBM 06/20. Will continue to monitor. Recommendations: 1. continue pureed/carb controlled diet per MD/SP 2. wt per rx Addendum: 06/21/19 at [address] Amended: Links added.
[2019-06-21 15:00] VITALS: BP 141/79
[2019-06-21] MEDS ORDERED: LACT1CAP26 PO (15:23)
[2019-06-21] MEDS ORDERED: PANT40TA4 PO (15:23)
[2019-06-21] MEDS ORDERED: LEVO500T89 PO (15:24)
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
--- NOTE | 2019-06-21 17:03 | NUR ---
Patient in room U 3014. I have received report from Ceci MCDOWELL and had the opportunity to ask questions and assume patient care. Patient is awaiting discharge and to come to the hospital. Addendum: 06/21/19 at 1706 by Aura Mooney RN I agree with Ceci MCDOWELLaccount support rep. will continue to monitor.
--- NOTE | 2019-06-21 17:12 | NUR ---
Problems reprioritized. Patient report given, questions answered & plan of care reviewed with Aura MCDOWELL. Patient stable at transfer of care.
--- NOTE | 2019-06-21 18:43 | NUR ---
Patient discharged home at 1630. Patient reviewed discharge packet before signing. All belongings sent with patient. Patient was wheeled down and left via yellow cab. RX written and placed in discharge packet.
== END 2019-06-21 18:20 | disposition home or self-care (01) | DRG 871 ==
LOC: ER 15:00 → ED HOLD 19:57 → ICU 2S 20:40 → PCU 3S 06-20 19:10
PROVIDERS: ATTEND Internal Medicine Critical Care Medicine
PROC: 5A1945Z Respiratory Ventilation, 24-96 Consecutive Hours (ICD-10-PCS; principal; 2019-06-17)
PROC: 0BH17EZ Insertion of Endotracheal Airway into Trachea, Via Natural or Artificial Opening (ICD-10-PCS; 2019-06-17)
PROC: 02HV33Z Insertion of Infusion Device into Superior Vena Cava, Percutaneous Approach (ICD-10-PCS; 2019-06-17)
PROC: B548ZZA Ultrasonography of Superior Vena Cava, Guidance (ICD-10-PCS; 2019-06-17)
PROC: 0DB68ZX Excision of Stomach, Via Natural or Artificial Opening Endoscopic, Diagnostic (ICD-10-PCS; 2019-06-18)
PROC: 4A10X4Z Monitoring of Central Nervous Electrical Activity, External Approach (ICD-10-PCS; 2019-06-18)
PROC: 5A1935Z Respiratory Ventilation, Less than 24 Consecutive Hours (ICD-10-PCS; 2019-06-20)
PROC: 5A1935Z Respiratory Ventilation, Less than 24 Consecutive Hours (ICD-10-PCS; 2019-06-21)
PROC: 3E0234Z Introduction of Serum, Toxoid and Vaccine into Muscle, Percutaneous Approach (ICD-10-PCS; 2019-06-21)
DX: A41.9 Sepsis, unspecified organism (principal); J96.00 Acute respiratory failure, unspecified whether with hypoxia or hypercapnia; K25.4 Chronic or unspecified gastric ulcer with hemorrhage; K22.11 Ulcer of esophagus with bleeding; K44.9 Diaphragmatic hernia without obstruction or gangrene; E11.42 Type 2 diabetes mellitus with diabetic polyneuropathy; F43.10 Post-traumatic stress disorder, unspecified; G89.4 Chronic pain syndrome; F15.929 Other stimulant use, unspecified with intoxication, unspecified; G43.909 Migraine, unspecified, not intractable, without status migrainosus; J98.8 Other specified respiratory disorders; G40.909 Epilepsy, unspecified, not intractable, without status epilepticus; B95.3 Streptococcus pneumoniae as the cause of diseases classified elsewhere; M54.9 Dorsalgia, unspecified; I10 Essential (primary) hypertension; J44.9 Chronic obstructive pulmonary disease, unspecified; Z79.01 Long term (current) use of anticoagulants; Z79.4 Long term (current) use of insulin; Z23 Encounter for immunization; Z86.718 Personal history of other venous thrombosis and embolism; Z86.73 Personal history of transient ischemic attack (TIA), and cerebral infarction without residual deficits; Z56.0 Unemployment, unspecified
CPT/HCPCS: 31500; 36415; 36556; 36600; 43239; 70450; 71045; 80053; 80164; 80305; 81001; 82803; 82948; 83036; 83605; 83735; 84100; 84145; 84484; 85018; 85025; 85027; 85610; 85730; 86885; 86900; 86901; 87040; 87070; 87077; 87081; 87186; 88305; 90732; 92508; 92616; 93005; 93306; 94002; 94003; 94760; 95816; 96361; 96374; 97110; 97116; 97162; 97530; 99291; C9113; G0378; J0456; J0696; J1720; J1815; J2250; J3010; J3475; J3480

== ENCOUNTER 2019-11-14 14:11 | Emergency (ER) | payer MEDICARE, MEDICAID ==
[~2019-11-14] VITALS: Ht 180.3 cm; Wt 80.0 kg
[~2019-11-14 14:11] MED LIST changes: -ALPR1TAB2 PO; +APIX2.5T PO; +ASPI-1071 PO; +ATOR20TA66 PO; -CLIN150C8 PO; -ESCI20TA PO; -FLUT16SP26 BOTHNARES; -INSU100V11 SQ; -INSU100V12 SQ; +INSU100V13; -INSU100V30 SQ; -LANTUS SQ; -LIDOcaine 1% W/epiNEPHrine 1:100,000 20ml vial ONE; -LISI-600 PO; -LORA10TA7 PO; -METF-438 PO; -MSC15T PO; -ONDA4TAB6 PO; -OXYC-150 PO; -PANT-47 PO; -TIZA4CAP PO; -TRAZ-219 PO; -etomidate 2mg/ml inj. ONE; -rocuronium 10mg/ml inj IV ONE; -sod chloride 0.9% 10ml flush syringe IV ONE
[2019-11-14 14:42] LABS: BASOPHILS # (AUTO) 0.1 X10'3 (0-0.2); BASOPHILS % (AUTO) 1.1 % (0-1); EOSINOPHILS # (AUTO) 0.3 X10'3 (0-0.9); EOSINOPHILS % (AUTO) 3.3 % (0-6); HEMATOCRIT 50.8 % (42.0-52.0); HEMOGLOBIN 17.4 g/dl (14.0-17.9); LYMPHOCYTES # (AUTO) 2.3 X10'3 (1.1-4.8); LYMPHOCYTES % (AUTO) 24.2 % (21-51); MEAN CORPUSCULAR HGB CONC 34.2 g/dL (33.0-36.5); MEAN CORPUSCULAR VOLUME 87.9 FL (78-98); MEAN PLATELET VOLUME 8.2 FL (7.4-10.4); MONOCYTES # (AUTO) 0.7 X10'3 (0-0.9); MONOCYTES % (AUTO) 7.2 % (2-12); NEUTROPHILS # (AUTO) 6.1 X10'3 (1.8-7.7); NEUTROPHILS % (AUTO) 64.2 % (42-75); PLATELET COUNT 273 X10'3 (140-440); RED BLOOD COUNT 5.78 X10'6 (4.70-6.10); RED CELL DISTRIBUTION WIDTH 13.6 % (11.5-14.5); WHITE BLOOD COUNT 9.5 X10'3 (4.5-11.0)
--- NOTE | 2019-11-14 14:45 | NUR ---
Pt. to CT
[2019-11-14 14:55] LABS: ALANINE AMINOTRANSFERASE 38 U/L (12-78); ALBUMIN 3.6 G/DL (3.4-5.0); ALBUMIN/GLOBULIN RATIO 1.1 (1.1-1.5); ALKALINE PHOSPHATASE 92 IU/L (46-116); ANION GAP 7 (8-16); ASPARTATE AMINO TRANSFERASE 26 U/L (10-37); BILIRUBIN,TOTAL 0.5 MG/DL (0.1-1.0); BLOOD UREA NITROGEN 19 MG/DL (7-18); BUN/CREATININE RATIO 17.1 (5.4-32.0); CALCIUM 9.2 MG/DL (8.5-10.1); CHLORIDE 105 MMOL/L (99-107); CREATININE 1.11 MG/DL (0.60-1.10); GLUCOSE 60 MG/DL (70-104); POTASSIUM 3.6 MMOL/L (3.5-5.1); SODIUM 141 MMOL/L (135-145); TOTAL CARBON DIOXIDE 29.3 MMOL/L (24-32); eGFR 66 ML/MIN
--- NOTE | 2019-11-14 15:06 | NUR ---
PT. Back from CT
--- NOTE | 2019-11-14 15:06 | NUR ---
Pt. states his home glucometer battery is , took his morning insuline without checking BG this morning.
[2019-11-14 16:23] VITALS: BP 139/89
== END 2019-11-14 16:59 | disposition home or self-care (01) ==
LOC: ER 14:11
DX: E11.649 Type 2 diabetes mellitus with hypoglycemia without coma (principal); E11.42 Type 2 diabetes mellitus with diabetic polyneuropathy; I10 Essential (primary) hypertension; G43.909 Migraine, unspecified, not intractable, without status migrainosus; E78.5 Hyperlipidemia, unspecified; M19.90 Unspecified osteoarthritis, unspecified site; G89.29 Other chronic pain; F15.90 Other stimulant use, unspecified, uncomplicated; Z86.718 Personal history of other venous thrombosis and embolism; Z72.89 Other problems related to lifestyle; Z56.0 Unemployment, unspecified; Z86.73 Personal history of transient ischemic attack (TIA), and cerebral infarction without residual deficits; Z79.01 Long term (current) use of anticoagulants; Z79.82 Long term (current) use of aspirin; Z79.4 Long term (current) use of insulin; Z79.899 Other long term (current) drug therapy
CPT/HCPCS: 36415; 70450; 71045; 80053; 82948; 84484; 85025; 93005; 99285